=== PATIENT | male | born 1985 | race Caucasian/White ===

== ENCOUNTER 2016-11-12 23:35 | Emergency (ER) | payer OTHER, BC ==
--- NOTE | 2016-11-12 23:50 | EDM.PDOC ---
ED HPI Trauma - General Chief Complaint: Lower Extremity Injury/Pain Stated Complaint: POLE FELL ON LEFT FOOT Time Seen by Provider: 11/12/16 23:47 - History of Present Illness INITIAL COMMENTS - FREE TEXT/NARRATIVE: HISTORY AND PHYSICAL: History of present illness: Patient 30-year-old male worsened status post left ankle injury occurred when a pipe fell on his ankle this occurred at work he denies any other trauma or concern Review of systems: As per history of present illness and below otherwise all systems reviewed and negative. Past medical history: As per history of present illness and as reviewed below otherwise noncontributory. Surgical history: As per history of present illness and as reviewed below otherwise noncontributory. Social history: No reported history of drug or alcohol abuse. Family history: As per history of present illness and as reviewed below otherwise noncontributory. Physical exam: HEENT: Atraumatic, normocephalic, pupils reactive, negative for conjunctival pallor or scleral icterus, mucous membranes moist, throat clear, neck supple, nontender, trachea midline. Lungs: Clear to auscultation, breath sounds equal bilaterally, chest nontender. Heart: S1S2, regular, negative for clicks, rubs, or JVD. Abdomen: Soft, nondistended, nontender. Negative for masses or hepatosplenomegaly. Negative for costovertebral tenderness. Pelvis: Stable nontender. Genitourinary: Deferred. Rectal: Deferred. Extremities: tenderness and limited range of motion note secondary to pain no crepitation or point tenderness Achilles tendon is normal CMS neurovascular is unremarkabled left ankle Neuro: Awake, alert, oriented. Cranial nerves II through XII unremarkable. Cerebellum unremarkable. Motor and sensory unremarkable throughout. Exam nonfocal. Diagnostics: X-ray left ankle/foot therapeutics : To be determined Impression: #1 acute left ankle injury (one trauma) Definitive disposition and diagnosis as appropriate pending reevaluation and review of above. Allergies/ADRs: Allergies No Known Allergies Allergy (Verified 11/12/16 23:46) Home Medications: Ambulatory Orders . [No Known Home Meds] 11/12/16 [Confirmed 11/12/16] Review of Systems - Review of Systems Review Of Systems: ROS reveals no pertinent complaints other than HPI. Trauma Exam - Physical Exam Exam: See Below (See dictation) Course - Vital Signs Last Recorded V/S: Last Vital Signs Temp 36.6 C 11/12/16 23:47 Pulse 96 11/12/16 23:47 Resp 18 11/12/16 23:47 BP 134/83 11/12/16 23:47 Pulse Ox 97 11/12/16 23:47 - Orders/Labs/Meds Orders: Active Orders 24 hr Category Date Time Status Ankle Min 3V Lt [CR] Stat Exams 11/12/16 23:51 Taken Foot 2V Lt [CR] Stat Exams 11/12/16 23:51 Taken Meds: Medications Discontinued Medications Generic Name Dose Route Start Last Admin Trade Name Freq PRN Reason Stop Dose Admin Ketorolac Tromethamine 60 mg 11/13/16 01:04 Toradol IM 11/13/16 01:05 ONETIME ONE Departure - Departure Time of Disposition: :08 Disposition: Home, Self-Care 01 Condition: good Clinical Impression: Fracture, foot Forms: ED Department Discharge Additional Instructions: The following information is given to patients seen in the emergency department who are being discharged to home. This information is to outline your options for follow-up care. We provide all patients seen in our emergency department with a follow-up referral. The need for follow-up, as well as the timing and circumstances, are variable depending upon the specifics of your emergency department visit. If you don't have a primary care physician on staff, we will provide you with a referral. We always advise you to contact your personal physician following an emergency department visit to inform them of the circumstance of the visit and for follow-up with them and/or the need for any referrals to a consulting specialist. The emergency department will also refer you to a specialist when appropriate. This referral assures that you have the opportunity for followup care with a specialist. All of these measure are taken in an effort to provide you with optimal care, which includes your followup. Under all circumstances we always encourage you to contact your private physician who remains a resource for coordinating your care. When calling for followup care, please make the office aware that this follow-up is from your recent emergency room visit. If for any reason you are refused follow-up, please contact the [facility] emergency department at and asked to speak to the emergency department charge nurse. [facility] Specialty [facility] - Orth[facility] Clinic Professional Building [address] [place] [address], [address] [place] [address] Followup primary medical doctor/orthopedic clinic call to schedule appointment posterior mold crutches as directed hydrocodone as prescribed return as needed as discussed - My Orders Last 24 Hours: My Active Orders 11/12/16 23:51 Ankle Min 3V Lt [CR] Stat Foot 2V Lt [CR] Stat - Assessment/Plan Last 24 Hours: My Active Orders 11/12/16 23:51 Ankle Min 3V Lt [CR] Stat Foot 2V Lt [CR] Stat
[2016-11-13] MEDS ORDERED: Ketorolac 60 MG/2 ML SDV IM ONE (01:04)
[2016-11-13 02:00] VITALS: BP 140/78
--- NOTE | 2016-11-13 10:55 | CR ---
EXAM DATE: 11/12/16 PATIENT'S AGE: 30 Patient: SINAN SWEET Facility: [place], [place] Site . Site : 1985 Study: XRay Extremity Left [id number]/5/2017 12:39:11 AM Ordering Physician: Virginia Albrecht Final Report: Indication: Injury left foot/ankle. Technique: Left ankle three views. Comparison: Left foot same day. Findings: No acute fracture or dislocation. No additional osseous abnormality. Soft tissues as imaged are unremarkable. Impression: Unremarkable left ankle. Dictated by Kamran Hicks MD @ 11/13/2016 1:02:58 AM Dictated by: Kamran Hicks MD @ 11/13/2016 01:03:25 (Electronic Signature) [facility] HOSPITALFaby
--- NOTE | 2016-11-13 10:55 | CR ---
EXAM DATE: 11/12/16 PATIENT'S AGE: 30 Patient: SINAN SWEET Facility: [place], [place] Site . Site : 1985 Study: XRay Extremity Left [id number]/5/2017 12:40:46 AM Ordering Physician: Virginia Albrecht Final Report: Indication: Injury with swelling and discoloration over metatarsals. Technique: Left foot two views. Comparison: Left ankle same day. Findings: There is an obliquely oriented minimally displaced fracture involving the distal 2nd metatarsal shaft. No additional acute osseous abnormality. Soft tissue swelling along the dorsum of the foot. Impression: Fracture of distal 2nd metatarsal. Dictated by Kamran Hicks MD @ 11/13/2016 1:05:18 AM Dictated by: Kamran Hicks MD @ 11/13/2016 01:05:29 (Electronic Signature) Report Signed by Proxy and Original Signed Document filed in the Medical Record. SACHA
== END 2016-11-13 01:30 | disposition home or self-care (01) ==
LOC: MW.ED 23:35
DX: S92.322A Displaced fracture of second metatarsal bone, left foot, initial encounter for closed fracture (principal); W20.8XXA Other cause of strike by thrown, projected or falling object, initial encounter
CPT/HCPCS: 73610; 73620; 96372; 99283; J1885

== ENCOUNTER 2018-02-20 08:13 | Day surgery (SDC) | payer BC, OTHER ==
[~2018-02-20 08:13] MED LIST: Lactated Ringers 1,000 ML IV SCH
[2018-02-20] MEDS ORDERED: Lidocaine 2% 5 ML SDV ONE (08:27)
[2018-02-20] MEDS ORDERED: fentaNYL 100 MCG/2 ML SDV ONE (08:27)
[2018-02-20] MEDS ORDERED: Midazolam 1 MG/ML 2 ML SDV ONE (08:27)
[2018-02-20] MEDS ORDERED: Propofol 200 MG/20 ML SDV ONE (08:27)
--- NOTE | 2018-02-20 09:11 | PCM.PREANE ---
Preanesthetic Assessment - Procedure Proposed Procedure: EGD and colonoscopy -reports blood in stool - Anesthesia/Transfusion/Family Hx Anesthesia History: Prior Anesthesia Without Reaction Family History of Anesthesia Reaction: No Transfusion History: No Prior Transfusion(s) - Review of Systems General: No Symptoms (Pt reports last week flu but has asymptomatic for last 3 days.) Pulmonary: No Symptoms, Other (uses symbicort daily and has albuterol resuce inhaler- has used frequently lately due to flu symptoms last week) Cardiovascular: No Symptoms Gastrointestinal: No Symptoms Neurological: No Symptoms Other: Reports: None - Physical Assessment NPO Status Date: 02/19/18 NPO Status Time: 22:30 Height: 5 ft 10 in Weight: 121.109 kg ASA Class: 2 Mental Status: Alert & Oriented x3 Airway Class: Mallampati = 1 Dentition: Reports: Normal Dentition (front bottom teeth are inplants) Thyro-Mental Finger Breadths: 3 Mouth Opening Finger Breadths: 3 ROM/Head Extension: Full - Allergies Allergies/Adverse Reactions: Allergies Allergy/AdvReac Type Severity Reaction Status Date / Time No Known Allergies Allergy Verified 02/16/18 10:48 - Acknowledgements Anesthesia Type Planned: MAC Pt an Appropriate Candidate for the Planned Anesthesia: Yes Alternatives and Risks of Anesthesia Discussed w Pt/Guardian: Yes Pt/Guardian Understands and Agrees with Anesthesia Plan: Yes PreAnesthesia Questionnaire - Past Health History Medical/Surgical History: Denies Medical/Surgical History HEENT History: Reports: Other (See Below) Other HEENT History: wears glasses, hx of fx nose Respiratory History: Reports: Asthma Other Respiratory History: uses Symbicort daily Musculoskeletal History: Reports: Fracture Other Musculoskeletal History: hx of fx left arm and foot Neurological History: Reports: Other (See Below) Other Neuro History: hx of Taylor's Palsy Endocrine/Metabolic History: Reports: Obesity/BMI 30+ - Infectious Disease History Infectious Disease History: Reports: None - Past Surgical History HEENT Surgical History: Reports: Naso-Sinus Surgery Other HEENT Surgeries/Procedures: Septoplasty GI Surgical History: Reports: EGD - SUBSTANCE USE Smoking Status *Q: Never Smoker Recreational Drug Use History: No - HOME MEDS Home Medications: Home Meds Albuterol [Proventil HFA] 1 puff INH ASDIRECTED PRN 01/30/18 [History] Budesonide/Formoterol [Symbicort 80-4.5 MCG] 2 puff INH QAM 01/30/18 [History] Multivitamin [Multiple Vitamins] 1 tab PO DAILY 01/30/18 [History] - CURRENT (IN HOUSE) MEDS Current Meds: Current Medications Lactated Ringer's (Ringers, Lactated) 1,000 mls @ 125 mls/hr IV ASDIRECTED JOEL Discontinued Medications Fentanyl (Sublimaze) Confirm Administered Dose 100 mcg .ROUTE .STK-MED ONE Stop: 02/20/18 08:28 Lactated Ringer's (Ringers, Lactated) 1,000 mls @ 125 mls/hr IV ASDIRECTED JOEL Lidocaine (Xylocaine-Mpf 2%) Confirm Administered Dose 5 ml .ROUTE .STK-MED ONE Stop: 02/20/18 08:28 Midazolam HCl (Versed 1 Mg/Ml) Confirm Administered Dose 2 mg .ROUTE .STK-MED ONE Stop: 02/20/18 08:28 Propofol (Diprivan 20 Ml) Confirm Administered Dose 400 mg .ROUTE .STK-MED ONE Stop: 02/20/18 08:28
[2018-02-20] MEDS ORDERED: Glycopyrrolate 0.2 MG/ML SDV ONE ×2 (10:19→10:21)
--- NOTE | 2018-02-20 10:58 | PCM.POSTAN ---
POST ANESTHESIA ASSESSMENT - MENTAL STATUS Mental Status: Alert, Oriented - RESPIRATORY Respiratory Status: Respiratory Rate WNL, Airway Patent, O2 Saturation Stable - CARDIOVASCULAR CV Status: Pulse Rate WNL, Blood Pressure Stable - GASTROINTESTINAL GI Status: No Symptoms - PAIN Pain Score: 0 - POST OP HYDRATION Hydration Status: Adequate & Stable
--- NOTE | 2018-02-20 10:58 | PCM.OPNOTE ---
- General Post-Op/Procedure Note Date of Surgery/Procedure: 02/20/18 Operative Procedure(s): egd w bx. colonoscopy w bx Findings: see [id number] Pre Op Diagnosis: BRBPR Post-Op Diagnosis: Same Anesthesia Technique: Moderate Sedation Primary Surgeon: Daniel Camejo Pathology: 1) egd bx 2) hyperemic bx at colon Complications: None Condition: Good Free Text/Narrative:: Intake & Output 02/19/18 02/20/18 02/20/18 22:59 06:59 14:59 Intake Total 1100 Balance 1100
--- NOTE | 2018-02-20 11:20 | PCM48HPAN ---
Post Anesthesia Note - EVALUATION WITHIN 48HRS OF ANESTHETIC Vital Signs in Normal Range: Yes Patient Participated in Evaluation: Yes Respiratory Function Stable: Yes Airway Patent: Yes Cardiovascular Function Stable: Yes Hydration Status Stable: Yes Pain Control Satisfactory: Yes Nausea and Vomiting Control Satisfactory: Yes Mental Status Recovered: Yes Resp Rate: 11
[2018-02-20 12:03] VITALS: BP 114/67
--- NOTE | 2018-02-20 14:13 | OR ---
SURGEON: Daniel Camejo MD DATE OF PROCEDURE: 02/20/2018 PREOPERATIVE DIAGNOSIS: Bright red blood per rectum. POSTOPERATIVE DIAGNOSIS: Bright red blood per rectum. PROCEDURES PERFORMED: Esophagogastroduodenoscopy with biopsy, and colonoscopy with biopsy. PROCEDURE IN DETAIL: EGD: The patient was taken to the endoscopy room, and with the [employer], Diprivan was administered. A well-lubricated EGD scope was gently inserted through the oropharynx, down the esophagus, passing through the gastroesophageal junction, into the stomach. The mucosa was examined upon the passage. Any etiology will be noted. Once in the stomach, we continued to advance to the distal antrum, passed through the pylorus into the second portion of the duodenum. Again, the mucosa was examined for any abnormality and etiology. The scope was then retrieved back to the stomach and then retroflexed to look at the fundus of the stomach. If a biopsy was indicated, we will biopsy the antrum, body, and gastroesophageal junction. The air will be sucked out while the scope is retrieved to reduce the patient's discomfort. The patient tolerated the procedure well. There were no intraoperative complications. Dr. Camejo was present through the whole procedure. Prior to surgery, a time-out had been called, the patient identified, procedure identified and antibiotic administered. Colonoscopy procedure: The patient was taken to the endoscopy room. A time out was called, patient identified, and procedure identified. Diprivan was then administrated. Patient went from awake to sleep, hearing doctor talking or door closing is normal. Perineum inspection and digital examination were then performed. A well- lubricated colonoscope was gently inserted through the rectum, advanced past the rectosigmoid junction, the descending colon, splenic flexure, transverse colon, hepatic flexure, ascending colon, arrived to the cecum. Cecum was identified as dictated in the finding. Then the scope was carefully withdrawn while attention was paid to the mucosal surface for any abnormality. Air will be sucked out during the scope withdrawal. At the rectum, retroflexed to examine any rectal diseases, fistula or hemorrhoids. During mucosal examination, biopsy performed. Patient tolerated procedure well. There were no intraoperative complications, and Dr. Camejo was present throughtout the whole procedure. FINDINGS: EGD findings: 1. The patient is easily sedated with [employer] and Diprivan. The patient is soundly snoring. 2. Oropharynx and proximal esophagus are free of disease. Distal esophagus at distance 40 shows a flame like situation and severe esophagitis. There was no bleeding ulcer. Rugae is normal in appearance. Antrum was a little bit inflamed. Duodenum was grossly normal. Biopsied and retroflexed to look at the fundus of the stomach, there was no hiatal hernia. Biopsy done at antrum, body, GE junction at 40 and sucked out air while scope pulling out. Colonoscopy findings: 1. The patient is easily sedated with [employer] and Diprivan. The patient is soundly snoring. 2. Bowel prep is left to be desirable with a lot of liquid stool and no semi- formed stool. 3. Colon is rather straight forward and short, and the patient's cecum is at distance 80 and will require constant irrigation because of the inadequate bowel prep and the patient does not have diverticulosis, mass, growth, inflammation, stricture, ulceration, AV malformation. At distance 50, there is either a colonoscopy trauma or either increased hyperemic, it was biopsied, but otherwise, the patient has internal hemorrhoids and the patient would benefit from repeat colonoscopy in 10 years from today or if clinically indicated otherwise. SAMY GIRON /[id number] SACHA
== END 2018-02-20 11:30 | disposition home or self-care (01) ==
LOC: MW.SDS 08:13
PROVIDERS: ATTEND Surgery
DX: K62.5 Hemorrhage of anus and rectum (principal); K29.50 Unspecified chronic gastritis without bleeding; K20.9 Esophagitis, unspecified; K63.9 Disease of intestine, unspecified; K64.8 Other hemorrhoids; J45.909 Unspecified asthma, uncomplicated; E66.9 Obesity, unspecified; Z68.38 Body mass index [BMI] 38.0-38.9, adult; Z79.899 Other long term (current) drug therapy
CPT/HCPCS: 43239; 45380; J2250; J3010; J2704; J3490

== ENCOUNTER 2019-10-01 19:05 | Emergency (ER) | payer BC, OTHER ==
[2019-10-01 19:25] VITALS: BP 134/79; PULSE 92
--- NOTE | 2019-10-01 19:28 | EDM.PDOC ---
ED HPI GENERAL MEDICAL PROBLEM - General Chief Complaint: General Stated Complaint: COUGH/VOMITING Time Seen by Provider: 10/01/19 19:24 Source of Information: Reports: Patient - History of Present Illness INITIAL COMMENTS - FREE TEXT/NARRATIVE: The patient is a 33-year-old male who presents to the ER with a complaint of a cough. The patient states he has been coughing with some nasal congestion for about the last week. He has had some subjective fevers as well. Today he was coughing so much that he had posttussive emesis but no primary nausea and no primary vomiting. No diarrhea. No myalgias but he does have a lot of malaise No other acute planes other than he has been using his nebulizer treatments at home more often than normal. Right Lower Chest Pain Score (Numeric/FACES): 4 - Related Data Allergies Allergy/AdvReac Type Severity Reaction Status Date / Time No Known Allergies Allergy Verified 10/01/19 19:21 Home Meds: Home Meds Albuterol [Proventil HFA] 1 puff INH ASDIRECTED PRN 01/30/18 [History] Budesonide/Formoterol [Symbicort 80-4.5 MCG] 2 puff INH QAM 01/30/18 [History] Multivitamin [Multiple Vitamins] 1 tab PO DAILY 01/30/18 [History] predniSONE [Prednisone] 80 mg PO 5XDAY #20 tablet 10/01/19 [Rx] Past Medical History - Past Health History Medical/Surgical History: Denies Medical/Surgical History HEENT History: Reports: Other (See Below) Other HEENT History: wears glasses, hx of fx nose Respiratory History: Reports: Asthma Other Respiratory History: uses Symbicort daily Musculoskeletal History: Reports: Fracture Other Musculoskeletal History: hx of fx left arm and foot Neurological History: Reports: Other (See Below) Other Neuro History: hx of Taylor's Palsy Endocrine/Metabolic History: Reports: Obesity/BMI 30+ - Infectious Disease History Infectious Disease History: Reports: None - Past Surgical History HEENT Surgical History: Reports: Naso-Sinus Surgery Other HEENT Surgeries/Procedures: Septoplasty GI Surgical History: Reports: EGD Social & Family History - Family History Family Medical History: Noncontributory ED ROS GENERAL - Review of Systems Review Of Systems: See Below (Positive for cough, positive nasal congestion, positive for frequent wheezing, positive for posttussive emesis, all other Positives and pertinent negatives as per HPI. All other pertinent systems were reviewed and are negative) ED EXAM, GENERAL - Physical Exam Exam: See Below Free Text/Narrative:: Constitutional: No acute distress, Non-toxic appearance, is nasally congested HEENT.: Normocephalic, Atraumatic, PERRL, EOMI, External ears are atraumatic, nares are patent without epistaxis Neck: Normal range of motion, Trachea Midline, No stridor Respiratory.: No respiratory distress, No tachypnea, Lungs Clear to Auscultation bilaterally without wheezes, rales, or rhonchi Cardiovascular.: Regular rate and Rhythm without murmurs, rubs, or gallops, good peripheral perfusion GI: deferred Genital Urinary: Deferred Musculoskeletal: Good range of motion. All 4 extremities present and atraumatic , no edema Back: Full Range of Motion Skin: Warm, Dry, Color is ethnicity appropriate, No acute rash. Lymphatic: No lymphadenopathy noted Neurological: Alert, Awake and oriented x 3, No focal deficits noted appreciate , GCS 15 Psych: Affect, Judgement, mood normal Course - Vital Signs Text/Narrative:: History and exam are consistent with a viral syndrome. Given the patient's lungs are clear and is oxygenating fine with no tachypnea, etc. no chest x-ray is warranted. I do suspect that the patient is having more frequent bouts of bronchospasm secondary to his asthma so he will be given a dose of prednisone in the ER and a prescription for prednisone. Last Recorded V/S: Last Vital Signs Temp 36.3 C 10/01/19 19:17 Pulse 92 10/01/19 19:17 Resp 18 10/01/19 19:17 BP 134/79 10/01/19 19:17 Pulse Ox 95 10/01/19 19:17 - Orders/Labs/Meds Orders: Active Orders 24 hr Category Date Time Status predniSONE Med 10/02/19 19:23 Once 80 mg PO ONETIME ONE Departure - Departure Time of Disposition: 19:27 Disposition: Home, Self-Care 01 Condition: Good Clinical Impression: Viral syndrome, Asthma exacerbation - Discharge Information Referrals: Cristiano Madsen MD [Primary Care Provider] - Additional Instructions: VIRAL SYNDROME This appears to be a viral syndrome. They are highly common and variable, causing fevers, colds, coughs, headaches, vomiting, diarrhea, etc. Antibiotics don't work on viruses, and they need to run their course. On average these last 7-10 days, depending upon the virus. There are some that even last up to several weeks. Rest, drink plenty of clear fluids, especially water. You want our urine to be clear to a light yellow. Ibuprofen 800 mg and Tylenol 1000 mg may be taken at the same time every 6 hours as needed for fevers and discomfort. Upper respiratory congestion and sore throats can be improved with cool liquids , humidifiers, cough drops with menthol, honey, tea with honey, and over-the- counter decongestants. Return to the ER if you develop difficulty breathing, or any other concerns. Sepsis Event Note - Evaluation Sepsis Screening Result: Possible Sepsis Risk - Focused Exam Vital Signs: Vital Signs Temp Pulse Resp BP Pulse Ox 10/01/19 19:17 36.3 C 92 18 134/79 95 Date Exam was Performed: 10/01/19 Time Exam was Performed: 19:24 - My Orders Last 24 Hours: My Active Orders 10/02/19 19:23 predniSONE 80 mg PO ONETIME ONE - Assessment/Plan Last 24 Hours: My Active Orders 10/02/19 19:23 predniSONE 80 mg PO ONETIME ONE
[2019-10-01] MEDS ORDERED: predniSONE 20 MG Tab PO STA (19:37)
[2019-10-02] MEDS ORDERED: predniSONE 20 MG Tab PO ONE (19:23)
== END 2019-10-01 19:44 | disposition home or self-care (01) ==
LOC: MW.ED 19:05
DX: J45.901 Unspecified asthma with (acute) exacerbation (principal); B34.9 Viral infection, unspecified; Z79.899 Other long term (current) drug therapy
CPT/HCPCS: 99283; A9270; 99282